=== PATIENT | female | born 1995 | race Caucasian/White ===

== ENCOUNTER 2021-08-02 14:54 | Emergency (ER) | payer OTHER ==
[~2021-08-02] VITALS: Ht 154.9 cm; Wt 77.6 kg
--- NOTE | 2021-08-02 18:31 | PHYS DOC ---
General Adult EDM: Chief Complaint: FLANK PAIN HPI: HPI: Patient is a 26-year-old female presenting for abdominal pain. Onset was 9 days ago without any known inciting event, trauma, ingestion, exposure, sick contact or recent travel. Nothing known makes better, palpation of certain areas on abdomen, certain body movements and p.o. intake makes worse. Patient describes a vague sharp pain that initially was periumbilical but has migrated to the left lower quadrant, right lower quadrant and at times right upper quadrant. Patient reports pain was constant and exacerbated with factors noted above. She saw her primary care physician early in the week and had an ultrasound of her abdomen performed that was negative for any concerning gallbladder, kidney, spleen and pancreas abnormalities. Patient reports ongoing symptoms with development of fever greater than 100.4 with T-max 102 and change in urine color prompting her to come in today for evaluation. She has taken no medications today. She has no known medical issues and does not take any medications on a daily basis. She is fully vaccinated against COVID-19 Review of Systems: Review of Systems: Fourteen body systems of review of systems have been reviewed. See HPI for pertinent positives and negative responses, other vazquez all other systems are negative, non-pertinent or non-contributory Heart Score: C/O Chest Pain: No HEART Score for Chest Pain: HEART Score for Chest Pain Response (Comments) Value History Slighlty/Non-Suspicious 0 Age < 45 0 Risk Factors No Risk Factors 0 Total 0 Risk Factors: Risk Factors: DM, Current or recent (<one month) smoker, HTN, HLP, family history of CAD, obesity. Risk Scores: Score 0 - 3: 2.5% MACE over next 6 weeks - Discharge Home Score 4 - 6: 20.3% MACE over next 6 weeks - Admit for Clinical Observation Score 7 - 10: 72.7% MACE over next 6 weeks - Early Invasive Strategies Physical Exam: PE: Constitutional: Well developed, well nourished, no acute distress, non-toxic appearance. HENT: Normocephalic, atraumatic, bilateral external ears normal, oropharynx moist, no oral exudates, nose normal. Eyes: PERRLA, EOMI, conjunctiva normal, no discharge. Neck: Normal range of motion, no tenderness, supple, no stridor. Cardiovascular: Heart rate regular, sinus rhythm, no murmurs rubs or gallops Lungs & Thorax: Bilateral breath sounds clear to auscultation Abdomen: Bowel sounds normal, soft, generalized abdominal tenderness most focal to periumbilical region and right upper quadrant, guarding is present with no rebound, no masses, no pulsatile masses. Nonsurgical abdomen, no peritoneal signs Skin: Warm, dry, no erythema, no rash. Back: No tenderness, no CVA tenderness. Extremities: No tenderness, no cyanosis, no clubbing, ROM intact, no edema. Neurologic: Alert and oriented X 3, grossly normal motor & sensory function, no focal deficits noted. Psychologic: Anxious affect and mood Current Patient Data: Labs: Laboratory Tests Test 08/02/21 18:35 08/02/21 18:36 08/02/21 19:04 08/02/21 19:34 Urine Collection Type Unknown Urine Color Yellow Urine Clarity Clear Urine pH 7.0 Urine Specific [place] 1.015 Urine Protein Negative mg/dL Urine Glucose (UA) Negative mg/dL Urine Ketones (Stick) Trace mg/dL Urine Blood Negative Urine Nitrite Negative Urine Bilirubin Negative Urine Urobilinogen Dipstick 0.2 mg/dL Urine Leukocyte Esterase Negative Urine RBC Rare /HPF Urine WBC Rare /HPF Urine Squamous Epithelial Cells Few /LPF Urine Bacteria 0 /HPF Urine Mucus Slight /LPF Bedside Urine HCG, Qualitative Hcg negative White Blood Count 11.8 x10^3/uL Red Blood Count 4.45 x10^6/uL Hemoglobin 14.4 g/dL Hematocrit 41.4 % Mean Corpuscular Volume 93 fL Mean Corpuscular Hemoglobin 32 pg Mean Corpuscular Hemoglobin Concent 35 g/dL Red Cell Distribution Width 13.2 % Platelet Count 313 x10^3/uL Neutrophils (%) (Auto) 57 % Lymphocytes (%) (Auto) 35 % Monocytes (%) (Auto) 6 % Eosinophils (%) (Auto) 2 % Basophils (%) (Auto) 1 % Neutrophils # (Auto) 6.7 x10^3/uL Lymphocytes # (Auto) 4.1 x10^3/uL Monocytes # (Auto) 0.7 x10^3/uL Eosinophils # (Auto) 0.2 x10^3/uL Basophils # (Auto) 0.1 x10^3/uL Sodium Level 138 mmol/L Potassium Level 3.8 mmol/L Chloride Level 100 mmol/L Carbon Dioxide Level 27 mmol/L Anion Gap 11 Blood Urea Nitrogen 10 mg/dL Creatinine 0.7 mg/dL Estimated GFR (Cockcroft-Gault) 102.0 BUN/Creatinine Ratio 14 Glucose Level 85 mg/dL Lactic Acid Level 0.5 mmol/L Calcium Level 9.2 mg/dL Total Bilirubin 0.3 mg/dL Aspartate Amino Transf (AST/SGOT) 18 U/L Alanine Aminotransferase (ALT/SGPT) 31 U/L Alkaline Phosphatase 105 U/L Total Protein 8.1 g/dL Albumin 4.2 g/dL Albumin/Globulin Ratio 1.1 Lipase 95 U/L SARS-CoV-2 Antigen (Rapid) Negative Current Medications Medications (Trade) Dose Ordered Sig/Erendira Route PRN Reason Start Time Stop Time Status Last Admin Dose Admin Sodium Chloride 1,000 ml @ 1,000 mls/hr 1X ONCE IV 08/02/21 19:30 08/02/21 20:29 08/02/21 19:23 Multi-Ingredient Mouthwash/Gargle (Gi Cocktail) 20 ml 1X ONCE SWSW 08/02/21 19:30 08/02/21 19:31 DC 08/02/21 19:24 Pantoprazole Sodium (PROTONIX VIAL for IV PUSH) 40 mg 1X ONCE IVP 08/02/21 19:30 08/02/21 19:31 DC 08/02/21 19:20 Diphenhydramine HCl (Benadryl) 25 mg 1X ONCE IVP 08/02/21 19:15 08/02/21 19:17 DC 08/02/21 19:23 Diphenhydramine HCl (Benadryl) 50 mg STK-MED ONCE .ROUTE 08/02/21 19:17 08/02/21 19:17 DC Iohexol (Omnipaque 300 Mg/ml) 75 ml 1X ONCE IV 08/02/21 20:00 08/02/21 20:01 DC 08/02/21 20:07 Info (CONTRAST GIVEN -- Rx MONITORING) 1 each PRN DAILY PRN MC SEE COMMENTS 08/02/21 20:15 08/04/21 20:14 Vital Signs: Vital Signs Date Time Temp Pulse Resp B/P (MAP) Pulse Ox O2 Delivery O2 Flow Rate FiO2 08/02/21 18:28 98.8 98 16 159/70 (99) 100 Room Air 98.8 Vital Signs Date Time Temp Pulse Resp B/P (MAP) Pulse Ox O2 Delivery O2 Flow Rate FiO2 08/02/21 20:00 66 19 114/70 (85) 100 Room Air 08/02/21 18:28 98.8 98.8 EKG: EKG: [] Radiology/Procedures: Radiology/Procedures: Exam: CT abdomen and pelvis with contrast INDICATION: Left lower quadrant pain TECHNIQUE: Sequential axial images through the abdomen and pelvis obtained following the administration of 75 mL of Isovue-370 IV contrast. Sagittal and coronal reformatted images were reconstructed from the axial data and reviewed. Exposure: One or more of the following in the visualized dose reduction techniques were utilized for this examination: 1. Automated exposure control 2. Adjustment of the MA and/or KV according to patient size 3. Use of iterative of reconstructive technique Comparisons: None FINDINGS: Heart size is normal. No pericardial effusion. Visualized lung bases are clear.. Liver, spleen, pancreas, gallbladder and adrenals are unremarkable. No perinephric inflammation or hydronephrosis. No renal or ureteral calculi are identified. Bladder is decompressed not well evaluated. Uterus not enlarged. Cystic lesions at the adnexa bilaterally greater on the right measuring 3 cm in diameter. Large and small bowel are unremarkable. Appendix is normal. No free intra- abdominal air or fluid. No obstruction. Abdominal aorta has a normal course and caliber. Abdominal vasculature is patent. No enlarged intra-abdominal lymph nodes are identified. No suspicious osseous lesions or acute fractures. IMPRESSION: 1. Cystic lesion at the adnexa bilaterally greater at the right measuring 2 cm in diameter favored represent cyst in the ovary. This is incompletely characterized on CT. 2. Otherwise, no acute processes identified within the abdomen or pelvis. Electronically signed by: Apryl Gutierrez MD (08/02/2021 8:17 PM) [facility] Course & Med Decision Making: Course & Med Decision Making ABCs unremarkable HPI physical exam and comprehensive ER work-up nonconcerning for any emergent or surgical issues I disclosed findings of bilateral ovarian cysts none of which are greater than 4 cm. Patient does not have an acute abdomen. I disclosed need for further diagnostic work-up but recommended in outpatient setting versus ER setting Patient has good access to primary care provider, I advised her to review ER visit today first thing in the morning, and my recommendations for outpatient pelvic ultrasound with DIN[facility] BRAKEMAN follow-up especially given the fact she is actively trying to get Supportive care practices discussed at length in addition to strict return precautions that were understood by patient. All questions and concerns addressed prior to ER departure Dianne Disclaimer: Dianne Disclaimer: This electronic medical record was generated, in whole or in part, using a voice recognition dictation system. Departure Departure Impression: Primary Impression: Unspecified abdominal pain Disposition: HOME / SELF CARE / HOMELESS Condition: STABLE Referrals: EDUARDO MUÑOZ MD (PCP) Additional Instructions: You have been evaluated in the Emergency Department today for abdominal pain. Your evaluation was not suggestive of any emergent condition requiring medical intervention at this time. However, some abdominal problems make take more time to appear. Therefore, it is important for you to watch for any new symptoms or worsening of your current condition. I disclosed findings of bilateral ovarian cysts none of which requiring further diagnostic work-up in ER setting and/or emergent or surgical intervention I recommend you discuss ER visit today with primary care physician and discuss need for outpatient pelvic ultrasound and DIN[facility] BRAKEMAN referral especially given the fact that you are actively trying to get Return to the Emergency Department if you experience worsening pain, persistent fevers greater than 100.4, recurrent vomiting, blood in vomit, blood in stool, dark tarry stool, chest pain, difficulty breathing, or any other concerning symptoms. RIN CORDERO DO Aug 02, 2021 18:31
[2021-08-02 19:07] LABS: BILIRUBIN,URINE NEGATIVE (NEG); CLARITY,URINE CLEAR; COLOR,URINE YELLOW; NITRITE,URINE NEGATIVE (NEG); PROTEIN,URINE NEGATIVE (NEG-TRACE); UROBILINOGEN,URINE 0.2 mg/dL (0.2 mg/dL)
[2021-08-02 19:10] LABS: BASO # 0.1 x10^3/uL (0.0-0.2); BASO % 1 % (0-3); EOS # 0.2 x10^3/uL (0.0-0.7); EOS % 2 % (0-3); HEMATOCRIT 41.4 % (36.0-47.0); HEMOGLOBIN 14.4 g/dL (12.0-15.5); LYMPH # 4.1 x10^3/uL (1.0-4.8); LYMPH % 35 % (24-48); MEAN CORPUSCULAR HEMOGLOBIN 32 pg (25-35); MEAN CORPUSCULAR HGB CONC 35 g/dL (31-37); MEAN CORPUSCULAR VOLUME 93 fL (79-100); MONO # 0.7 x10^3/uL (0.0-1.1); MONO % 6 % (0-9); NEUT # 6.7 x10^3/uL (1.8-7.7); NEUT % 57 % (31-73); PLATELET COUNT 313 x10^3/uL (140-400); RED BLOOD COUNT 4.45 x10^6/uL (3.50-5.40); RED CELL DISTRIBUTION WIDTH 13.2 % (11.5-14.5); WHITE BLOOD COUNT 11.8 x10^3/uL (4.0-11.0)
[2021-08-02] MEDS ORDERED: diphenhydrAMINE 50 MG/ML VIAL IVP ONE (19:15)
[2021-08-02 19:16] LABS: BACTERIA,URINE 0 /HPF (0-FEW); RBC,URINE RARE /HPF (0-2); WBC,URINE RARE /HPF (0-4)
[2021-08-02] MEDS ORDERED: diphenhydrAMINE 50 MG/ML VIAL ONE (19:17)
[2021-08-02 19:23] LABS: CALCIUM 9.2 mg/dL (8.5-10.1); CREATININE 0.7 mg/dL (0.6-1.0); POTASSIUM 3.8 mmol/L (3.5-5.1)
[2021-08-02 19:28] LABS: ALBUMIN 4.2 g/dL (3.4-5.0); ALBUMIN/GLOBULIN RATIO 1.1 (1.0-1.7); TOTAL BILIRUBIN 0.3 mg/dL (0.2-1.0); TOTAL PROTEIN 8.1 g/dL (6.4-8.2)
[2021-08-02] MEDS ORDERED: LIDO:MAALOX 1:1 20 ML SINGLE DOSE. SWSW ONE (19:30)
[2021-08-02] MEDS ORDERED: IV NORMAL SALINE 1000ML BAG 1,000 ML IV ONE (19:30)
[2021-08-02] MEDS ORDERED: PANTOPRAZOLE IV PUSH 40 MG VIAL. IVP ONE (19:30)
[2021-08-02] MEDS ORDERED: IOHEXOL 300 MG/ML 100ML VIAL. IV ONE (20:00)
[2021-08-02] MEDS ORDERED: CONTRAST GIVEN. MC PRN (20:15)
--- NOTE | 2021-08-02 20:19 | RAD ---
Exam: CT abdomen and pelvis with contrast INDICATION: Left lower quadrant pain TECHNIQUE: Sequential axial images through the abdomen and pelvis obtained following the administrati on of 75 mL of Isovue-370 IV contrast. Sagittal and coronal reformatted images were reconstructed fro m the axial data and reviewed. Exposure: One or more of the following in the visualized dose reduction techniques were utilized for this examination: 1. Automated exposure control 2. Adjustment of the MA and/or KV according to patient size 3. Use of iterative of reconstructive technique Comparisons: None FINDINGS: Heart size is normal. No pericardial effusion. Visualized lung bases are clear.. Liver, spleen, pancreas, gallbladder and adrenals are unremarkable. No perinephric inflammation or hydronephrosis. No renal or ureteral calculi are identified. Bladder is decompressed not well evaluated. Uterus not enlarged. Cystic lesions at the adnexa bilater ally greater on the right measuring 3 cm in diameter. Large and small bowel are unremarkable. Appendix is normal. No free intra-abdominal air or fluid. No obstruction. Abdominal aorta has a normal course and caliber. Abdominal vasculature is patent. No enlarged intra-abdominal lymph nodes are identified. No suspicious osseous lesions or acute fractures. IMPRESSION: 1. Cystic lesion at the adnexa bilaterally greater at the right measuring 2 cm in diameter favored r epresent cyst in the ovary. This is incompletely characterized on CT. 2. Otherwise, no acute processes identified within the abdomen or pelvis. Electronically signed by: Apryl Gutierrez MD (08/02/2021 8:17 PM) [facility]
[2021-08-02 21:00] VITALS: BP 106/76
--- NOTE | 2021-08-04 09:59 | NUR ---
IP: Attempted to contact pt concerning covid results. No answer, left a voicemail to return the call. Addendum: 08/04/21 at 1014 by JYOTI NAM RN Pt returned my call. I informed pt of negative covid test. She verbalized understanding.
== END 2021-08-02 21:00 | disposition home or self-care (01) ==
LOC: ER 14:54
DX: R10.32 Left lower quadrant pain (principal); Z20.822 Contact with and (suspected) exposure to COVID-19
CPT/HCPCS: 36415; 74177; 80053; 81001; 81025; 83605; 83690; 85025; 87426; 96361; 96374; 96375; 99285; C9113; J1200; J7030; Q9967; U0003; U0005

== ENCOUNTER → 2021-08-05 | Outpatient (CLI) | payer OTHER ==
[2021-08-02 21:00] VITALS: BP 106/76
== END ==
LOC: SPEC 11:57
PROVIDERS: ATTEND Obstetrics & Gynecology
DX: N89.8 Other specified noninflammatory disorders of vagina (principal)
CPT/HCPCS: Q0111

== ENCOUNTER → 2021-08-18 | Outpatient (CLI) | payer OTHER ==
[2021-08-02 21:00] VITALS: BP 106/76
--- NOTE | 2021-08-18 15:23 | RAD ---
EXAM: Pelvic ultrasound HISTORY: Pelvic pain. COMPARISON: 08/02/2021. FINDINGS: Sonographic evaluation of the pelvis was performed transabdominally. The uterus is anteverted and measures 7.7 x 4.3 x 3.0 cm. The endometrial stripe measures 4 mm. No ma sses are identified. There is no significant free fluid. The right ovary measures 3.0 x 2.9 x 2.5 cm. A dominant follicle on the right measures 1.4 cm. The le ft ovary measures 2.4 x 2.0 x 1.8 cm. There is normal Doppler flow bilaterally. There are no suspicio us lesions. IMPRESSION: 1. The previously noted right ovarian follicle has mostly resolved. No cause for acute pain is identi fied. Electronically signed by: Isaias Fournier MD (08/18/2021 3:21 PM) [id number]
== END ==
LOC: US 14:52
PROVIDERS: ATTEND Obstetrics & Gynecology
DX: N85.4 Malposition of uterus (principal); N83.01 Follicular cyst of right ovary
CPT/HCPCS: 76856